=== PATIENT | female | born 1970 | race Caucasian/White ===

== ENCOUNTER 2023-03-25 08:13 | Day surgery (SDC) | payer OTHER ==
[~2023-03-25] VITALS: Ht 165.1 cm; Wt 63.5 kg
[2023-03-25] MEDS ORDERED: MEPERIDINE 50 MG/ML VIAL ONE (09:06)
[2023-03-25] MEDS ORDERED: MIDAZOLAM HCL 5 MG/5 ML VIAL ONE (09:06)
[2023-03-25 11:48] VITALS: BP_SYST 104
== END 2023-03-25 11:20 | disposition home or self-care (01) ==
LOC: SDS 08:13 → SMU 08:14 → SDS 11:20
PROVIDERS: ATTEND Internal Medicine Gastroenterology
DX: Z12.11 Encounter for screening for malignant neoplasm of colon (principal); D12.3 Benign neoplasm of transverse colon; K64.8 Other hemorrhoids; K59.09 Other constipation; E78.5 Hyperlipidemia, unspecified; Z90.710 Acquired absence of both cervix and uterus
CPT/HCPCS: 45385; 88305; 99152; G0378; J2250; J2175